=== PATIENT | male | born 1995 | race Caucasian/White ===

== ENCOUNTER 2017-06-28 23:07 | Emergency (ER) | payer OTHER ==
[2017-06-28] MEDS ORDERED: IBUPROFEN 200 MG TAB PO ONE (23:53)
[2017-06-28] MEDS ORDERED: IBUPROFEN 400 MG TAB ONE (23:53)
--- NOTE | 2017-06-29 00:24 | ER ---
Nurse's Notes [facility] Name: Devon Singer Age: 22 yrs Sex: Male : 1995 Arrival Date: 06/28/2017 Time: 23:15 Bed 6 Private MD: Diagnosis: Sprain of ankle;Sprain of other ligament of right ankle;Coagulation defect, unspecified Presentation: 06/28 23:24 Presenting complaint: Patient states: Was at work at [employer] and felt and ao hit his right ankle. Patient complains of pain at 7/10 pain scale. Patient negative for nausea and vomiting. No other injuries were reported. Transition of care: patient was not received from another setting of care. Onset of symptoms was June 28, 2017 at 22:30. Initial Sepsis Screen: Does the patient meet any 2 criteria? No. Patient's initial sepsis screen is negative. Does the patient have a suspected source of infection? No. Patient's initial sepsis screen is negative. Care prior to arrival: None. 23:24 Method Of Arrival: Ambulatory ao 23:24 Acuity: [place]RO[place] 4 ao Historical: - Allergies: 23:28 No Known Allergies; ao - Home Meds: 23:28 None [Active]; ao - PMHx: 23:28 Asthma; ao - PSHx: 23:28 toe nail; ao - Immunization history:: Adult Immunizations up to date. - Social history:: Smoking status: Patient/guardian denies using tobacco, Patient uses alcohol, occasionally. Patient/guardian denies using street drugs. - Family history:: not pertinent. Screenin/26 00:55 Abuse screen: Denies threats or abuse. Denies injuries from another. Nutritional ao screening: No deficits noted. Tuberculosis screening: No symptoms or risk factors identified. Fall Risk Fall in past 12 months (25 points). No secondary diagnosis (0 pts). No IV (0 pts). Ambulatory Aid- Crutches/Cane/Walker (15 pts). Gait- Normal/Bed Rest/Wheelchair (0 pts) Mental Status- Oriented to own ability (0 pts). Total Herrera Fall Scale indicates Low Risk Score (25-44 pts). Fall prevention measures have been instituted. Side Rails Up X 2 Frequent Obs/Assesments occuring As available Patient and Family Educated on Fall Prevention Program and strategies. Assessment: 00:00 General: Appears in no apparent distress. uncomfortable, Behavior is calm, cooperative, ao appropriate for age. Pain: Complains of pain in right ankle Pain currently is 7 out of 10 on a pain scale. Neuro: Level of Consciousness is awake, alert, obeys commands, Oriented to person, place, time, situation, Appropriate for age Moves all extremities. Speech is normal, Facial symmetry appears normal. Cardiovascular: Capillary refill < 3 seconds Patient's skin is warm and dry. Respiratory: Airway is patent Respiratory effort is even, unlabored, Respiratory pattern is regular, symmetrical. GI: Abdomen is obese. : No signs and/or symptoms were reported regarding the genitourinary system. EENT: No signs and/or symptoms were reported regarding the EENT system. Derm: Skin Petechiae noted in upper extremities. Musculoskeletal: Range of motion: intact in right ankle. Injury Description: Fall at work and injured his ankle. Vital Signs: 06/28 23:26 BP 147 / 96; Pulse 86; Resp 16; Temp 98.5(O); Pulse Ox 97% on R/A; Weight 102.06 kg ao (R); Height 5 ft. 11 in. (180.34 cm) (R); Pain 7/10; 06/29 00:45 BP 133 / 85; Pulse 80; Resp 14; Pulse Ox 99% on R/A; Pain 4/10; ao 06/28 23:26 Body Mass Index 31.38 (102.06 kg, 180.34 cm) ao ED Course: 06/28 23:15 Patient arrived in ED. es 23:24 Francisco Barbosa, RN is Primary Nurse. ao 23:26 Triage completed. ao 23:28 Arm band placed on right wrist. Patient placed in an exam room, Patient notified of ao wait time. 23:40 Medardo Silverman MD is Attending Physician. lawrence 23:56 X-ray completed. Portable x-ray completed in exam room. Patient tolerated procedure kw well. 23:57 Ankle Right 3 View XRAY In Process Unspecified. EDMS 06/29 00:23 Giuseppe Morgan MD is Referral Physician. lawrence 00:40 Kerri Pepe MD is Referral Physician. lawrence 00:56 Patient has correct armband on for positive identification. Pulse ox on. NIBP on. ao 00:56 No provider procedures requiring assistance completed. Patient did not have IV access ao during this emergency room visit. Administered Medications: 06/28 23:57 Drug: Motrin 600 mg Route: PO; ao 06/29 00:38 Follow up: Response: No adverse reaction ao Intake: 06/28 23:59 IV: 1000ml; Total: 1000ml. ao Outcome: 06/29 00:24 Discharge ordered by . lawrence 00:57 Discharged to home via wheelchair. ao 00:57 Condition: stable 00:57 Discharge instructions given to patient, Instructed on discharge instructions, follow up and referral plans. Demonstrated understanding of instructions, follow-up care, medications, Prescriptions given X 1. 01:06 Patient left the ED. ao Signatures: Dispatcher [employer] Medardo Farrell MD MD cha Salyer, Val Santamaria Alex, RN RN ao
--- NOTE | 2017-06-29 00:25 | EDPHYS ---
Physician Documentation [facility] Name: Devon Singer Age: 22 yrs Sex: Male : 1995 Arrival Date: 06/28/2017 Time: 23:15 Bed 6 Private MD: ED Physician Medardo Silverman HPI: 06/28 23:42 This 22 yrs old Male presents to ER via Ambulatory with complaints of Ankle lawrence Injury. 23:42 The patient presents with decreased range of motion, pain. The complaints affect the lawrence right ankle, right ankle. Onset: The symptoms/episode began/occurred just prior to arrival. Context: The problem was sustained at work, resulted from a mis-step by the patient, on a slippery surface. Associated signs and symptoms: The patient has no apparent associated signs or symptoms. Modifying factors: The symptoms are alleviated by elevation of extremity, ice packs, the symptoms are aggravated by weight bearing, movement. Severity of symptoms: At their worst the symptoms were moderate, in the emergency department the symptoms are unchanged. The patient has not experienced similar symptoms in the past. Historical: - Allergies: 23:28 No Known Allergies; ao - Home Meds: 23:28 None [Active]; ao - PMHx: 23:28 Asthma; ao - PSHx: 23:28 toe nail; ao - Immunization history:: Adult Immunizations up to date. - Social history:: Smoking status: Patient/guardian denies using tobacco, Patient uses alcohol, occasionally. Patient/guardian denies using street drugs. - Family history:: not pertinent. ROS: 23:42 Constitutional: Negative for fever, chills, and weight loss, Eyes: Negative for injury, lawrence pain, redness, and discharge, ENT: Negative for injury, pain, and discharge, Neck: Negative for injury, pain, and swelling, Cardiovascular: Negative for chest pain, palpitations, and edema, Respiratory: Negative for shortness of breath, cough, wheezing, and pleuritic chest pain, Abdomen/GI: Negative for abdominal pain, nausea, vomiting, diarrhea, and constipation, Back: Negative for injury and pain, : Negative for injury, bleeding, discharge, and swelling, Skin: Negative for injury, rash, and discoloration, Neuro: Negative for headache, weakness, numbness, tingling, and seizure, Psych: Negative for depression, anxiety, suicide ideation, homicidal ideation, and hallucinations, Allergy/Immunology: Negative for hives, rash, and allergies, Endocrine: Negative for neck swelling, polydipsia, polyuria, polyphagia, and marked weight changes, Hematologic/Lymphatic: Negative for swollen nodes, abnormal bleeding, and unusual bruising. 23:42 MS/extremity: Positive for decreased range of motion, pain, swelling, of the right ankle. Exam: 23:42 Constitutional: This is a well developed, well nourished patient who is awake, alert, lawrence and in no acute distress. Head/Face: Normocephalic, atraumatic. Eyes: Pupils equal round and reactive to light, extra-ocular motions intact. Lids and lashes normal. Conjunctiva and sclera are non-icteric and not injected. Cornea within normal limits. Periorbital areas with no swelling, redness, or edema. ENT: Nares patent. No nasal discharge, no septal abnormalities noted. Tympanic membranes are normal and external auditory canals are clear. Oropharynx with no redness, swelling, or masses, exudates, or evidence of obstruction, uvula midline. Mucous membranes moist. Neck: Trachea midline, no thyromegaly or masses palpated, and no cervical lymphadenopathy. Supple, full range of motion without nuchal rigidity, or vertebral point tenderness. No Meningismus. Chest/axilla: Normal chest wall appearance and motion. Nontender with no deformity. No lesions are appreciated. Cardiovascular: Regular rate and rhythm with a normal S1 and S2. No gallops, murmurs, or rubs. Normal PMI, no JVD. No pulse deficits. Respiratory: Lungs have equal breath sounds bilaterally, clear to auscultation and percussion. No rales, rhonchi or wheezes noted. No increased work of breathing, no retractions or nasal flaring. Abdomen/GI: Soft, non-tender, with normal bowel sounds. No distension or tympany. No guarding or rebound. No evidence of tenderness throughout. Back: No spinal tenderness. No costovertebral tenderness. Full range of motion. Male : Normal genitalia with no discharge or lesions. Skin: Warm, dry with normal turgor. Normal color with no rashes, no lesions, and no evidence of cellulitis. Neuro: Awake and alert, GCS 15, oriented to person, place, time, and situation. Cranial nerves II-XII grossly intact. Motor strength 5/5 in all extremities. Sensory grossly intact. Cerebellar exam normal. Normal gait. Psych: Awake, alert, with orientation to person, place and time. Behavior, mood, and affect are within normal limits. 23:42 Musculoskeletal/extremity: ROM: full passive range of motion, limited active range of motion, Circulation is intact in all extremities. Sensation intact. Compartment Syndrome exam of affected extremity: is normal. Joints: the right ankle displays effusion, limited range of motion, pain at rest, painful range of motion, swelling, DVT Exam: negative Homans' sign noted on exam, no appreciated bluish discoloration, no erythema, no increased warmth, pain, swelling, tenderness. Vital Signs: 23:26 BP 147 / 96; Pulse 86; Resp 16; Temp 98.5(O); Pulse Ox 97% on R/A; Weight 102.06 kg ao (R); Height 5 ft. 11 in. (180.34 cm) (R); Pain 7/10; 06/29 00:45 BP 133 / 85; Pulse 80; Resp 14; Pulse Ox 99% on R/A; Pain 4/10; ao 06/28 23:26 Body Mass Index 31.38 (102.06 kg, 180.34 cm) ao MDM: 06/28 23:40 Patient medically screened. [facility] 23:42 Data reviewed: vital signs, nurses notes, radiologic studies, plain films. [facility] 06/28 23:42 Order name: Ankle Right 3 View XRAY [facility] 06/28 23:42 Order name: Ice pack; Complete Time: 23:57 [facility] 06/28 23:42 Order name: Crutches; Complete Time: 00:38 [facility] 06/28 23:42 Order name: Posterior Orthoglass Ankle Splint; Complete Time: 00:51 [facility] Administered Medications: 23:57 Drug: Motrin 600 mg Route: PO; ao 06/29 00:38 Follow up: Response: No adverse reaction ao Disposition: 06/29/17 00:24 Discharged to Home. Impression: Sprain of ankle, Sprain of other ligament of right ankle, Coagulation defect, unspecified. - Condition is Stable. - Discharge Instructions: Ankle Sprain, Ankle Sprain, [id number], Ankle Pain. - Prescriptions for Tylenol- Codeine #3 300-30 mg Oral Tablet - take 2 tablets by ORAL route every 6 hours As needed; 26 tablet. - Medication Reconciliation Form, Thank You Letter, Antibiotic Education, Prescription Opioid Use, Work release form form. - Follow up: Private Physician; When: 2 - 3 days; Reason: Recheck today's complaints, Continuance of care, Re-evaluation by your physician. Follow up: Giuseppe Morgan; When: 2 - 3 days; Reason: Recheck today's complaints, Re-evaluation by your physician. Follow up: Kerri Pepe MD; When: 2 - 3 days; Reason: Recheck today's complaints, Continuance of care, Re-evaluation by your physician. - Problem is new. - Symptoms have improved. Signatures: Dispatcher [employer] Medardo Farrell MD MD cha Ortiz, Alex, RN RN ao
--- NOTE | 2017-06-29 08:44 | RAD REPORT ---
EXAM DESCRIPTION: RAD - Ankle Right 3 View - 06/29/2017 12:00 am CLINICAL HISTORY: Right ankle pain and swelling. COMPARISON: None. FINDINGS: Moderate ankle joint effusion is seen. Significant lateral soft tissue swelling is evident . No acute fracture or dislocation is seen.
== END 2017-06-29 01:06 | disposition home or self-care (01) ==
LOC: ER 23:07
PROC: 2W3QX1Z Immobilization of Right Lower Leg using Splint (ICD-10-PCS; principal; 2017-06-28)
DX: S93.491A Sprain of other ligament of right ankle, initial encounter (principal); W01.0XXA Fall on same level from slipping, tripping and stumbling without subsequent striking against object, initial encounter; Y93.9 Activity, unspecified; Y92.89 Other specified places as the place of occurrence of the external cause; D68.9 Coagulation defect, unspecified
CPT/HCPCS: 99284

== ENCOUNTER 2018-04-17 17:23 | Emergency (ER) | payer OTHER, SELFPAY ==
[2018-04-17] MEDS ORDERED: IPRATROPIUM BROM 0.5MG/2.5ML ONE (18:35)
[2018-04-17] MEDS ORDERED: ALBUTEROL 2.5 MG/3 ML NEB SOL ONE (18:35)
[2018-04-17] MEDS ORDERED: predniSONE 20 MG TAB ONE (18:35)
--- NOTE | 2018-04-17 18:53 | RAD REPORT ---
EXAM DESCRIPTION: RAD - Chest Pa And Lat (2 Views) - 04/17/2018 6:27 pm CLINICAL HISTORY: Cough and congestion COMPARISON: None. TECHNIQUE: PA and lateral views of the chest were obtained. FINDINGS: The lungs are clear. Heart size is normal and central vasculature is within normal limit s. No pleural effusion or pneumothorax seen. No acute bony finding noted. No aortic abnormality. IMPRESSION: No acute cardiopulmonary process.
--- NOTE | 2018-04-17 19:28 | ER ---
Nurse's Notes [facility] Name: Devon Singer Age: 22 yrs Sex: Male : 1995 Arrival Date: 04/17/2018 Time: 17:28 Bed 6 Private MD: Juanito Painting H Diagnosis: Acute bronchospasm;Acute bronchitis Presentation: 04/17 17:37 Presenting complaint: Productive cough with yellow sputum, pain with cough, and SOB x 2 hb days. Transition of care: patient was not received from another setting of care. Onset of symptoms was April 16, 2018. Risk Assessment: Do you want to hurt yourself or someone else? Patient reports no desire to harm self or others. Care prior to arrival: None. 17:37 Method Of Arrival: Ambulatory hb 17:37 Acuity: [place] 2 hb 18:30 Initial Sepsis Screen: Does the patient meet any 2 criteria? HR > 90 bpm. Does the aa5 patient have a suspected source of infection? No. Patient's initial sepsis screen is negative. Historical: - Allergies: 17:39 No Known Allergies; hb - PMHx: 17:39 Asthma; hb - PSHx: 17:39 toe nail; hb - Immunization history:: Adult Immunizations up to date. - Social history:: Smoking status: Patient/guardian denies using tobacco. - Ebola Screening: : No symptoms or risks identified at this time. Screenin:30 Abuse screen: Denies threats or abuse. Nutritional screening: No deficits noted. aa5 Tuberculosis screening: No symptoms or risk factors identified. Fall Risk None identified. Assessment: 18:28 General: Appears comfortable, Behavior is calm, cooperative. Pain: Complains of pain in aa5 mid-sternal area Pain currently is 5 out of 10 on a pain scale. Quality of pain is described as aching, pressure, Is intermittent, Aggravated by pain only with cough. Neuro: Level of Consciousness is awake, alert, obeys commands, Oriented to person, place, time, situation. Cardiovascular: Heart tones S1 S2 present Capillary refill < 3 seconds is brisk in bilateral fingers Rhythm is regular. Respiratory: Reports shortness of breath cough that is productive, Airway is patent Respiratory effort is even, unlabored, Respiratory pattern is regular, symmetrical, Breath sounds are clear bilaterally. GI: No signs and/or symptoms were reported involving the gastrointestinal system. : No signs and/or symptoms were reported regarding the genitourinary system. EENT: No signs and/or symptoms were reported regarding the EENT system. Derm: Skin is pink, warm \T\ dry. Musculoskeletal: Range of motion: intact in all extremities. 18:28 Reassessment: Pt back from radiology . aa5 19:20 General: Appears in no apparent distress. Behavior is calm, cooperative. Pain: Denies ea pain. Neuro: Level of Consciousness is awake, alert, obeys commands, Oriented to person, place, time, situation. Cardiovascular: Patient's skin is warm and dry. Respiratory: Airway is patent Respiratory effort is even, unlabored, Respiratory pattern is regular, symmetrical. GI: No signs and/or symptoms were reported involving the gastrointestinal system. : No signs and/or symptoms were reported regarding the genitourinary system. Derm: Skin is pink, warm \T\ dry. Musculoskeletal: Range of motion: intact in all extremities. Vital Signs: 17:36 BP 133 / 100; Pulse 118; Resp 20; Temp 97.7; Pulse Ox 92% on R/A; Pain 6/10; hb 18:25 BP 137 / 92; Pulse 103; Resp 20 S; Pulse Ox 96% on R/A; aa5 19:19 BP 143 / 100; Pulse 110; Resp 20; Pulse Ox 96% on R/A; tl2 ED Course: 17:28 Patient arrived in ED. sb2 17:28 Juanito Painting DO is Private Physician. sb2 17:38 Triage completed. hb 17:39 Arm band placed on. hb 17:40 Sky Israel MD is Attending Physician. gs 18:26 XRAY Chest Pa And Lat (2 Views) In Process Unspecified. EDMS 18:30 Sera Rushing, JOSH is Primary Nurse. aa5 18:30 Patient has correct armband on for positive identification. aa5 19:00 Report given to JOSH Stover and JOSH Puckett. aa5 19:30 No provider procedures requiring assistance completed. IV discontinued, intact, ea bleeding controlled, No redness/swelling at site. Pressure dressing applied. Administered Medications: 18:28 Drug: AtroVENT Aerosol 0.5 mg Route: Inhalation; aa5 18:28 Drug: Albuterol 2.5 mg Route: Inhalation; aa5 18:28 Drug: predniSONE 40 mg Route: PO; aa5 Outcome: 19:28 Discharge ordered by . negrito 19:35 Discharged to home ambulatory, with significant other. carlos 19:35 Condition: improved 19:35 Discharge instructions given to patient, Instructed on discharge instructions, follow up and referral plans. medication usage, Demonstrated understanding of instructions, follow-up care, medications. 19:48 Patient left the ED. ea Signatures: Dispatcher [employer] EDMS Sera Rushing RN RN aa5 Xena Duron RN RN Lavern Montana RN RN tl2 Jolanta Jarvis RN RN Sky Pate MD MD gs Billeau, Sheri sb2 Corrections: (The following items were deleted from the chart) 17:38 17:36 BP 133 / 100; Pulse 112bpm; Resp 20bpm; Pulse Ox 92% RA; Temp 97.7F; Pain 6/10; hbhb
--- NOTE | 2018-04-17 19:29 | EDPHYS ---
Physician Documentation [facility] Name: Devon Singer Age: 22 yrs Sex: Male : 1995 Arrival Date: 04/17/2018 Time: 17:28 Bed 6 Private MD: Juanito Painting H ED Physician Sky Israel HPI: 04/17 19:19 This 22 yrs old Male presents to ER via Ambulatory with complaints of gs Congestion. 19:19 The patient or guardian reports cough, described as moderate, difficulty breathing, flu gs symptoms, arthralgias, low-grade fever, myalgias. Onset: The symptoms/episode began/occurred 2 day(s) ago. Severity of symptoms: At their worst the symptoms were severe, in the emergency department the symptoms are unchanged. Modifying factors: The symptoms are alleviated by nothing, the symptoms are aggravated by nothing. Associated signs and symptoms: Pertinent positives: fever. The patient has experienced similar episodes in the past, a few times. Historical: - Allergies: 17:39 No Known Allergies; hb - PMHx: 17:39 Asthma; hb - PSHx: 17:39 toe nail; hb - Immunization history:: Adult Immunizations up to date. - Social history:: Smoking status: Patient/guardian denies using tobacco. - Ebola Screening: : No symptoms or risks identified at this time. ROS: 19:19 All other systems are negative. gs Exam: 19:19 Head/Face: Normocephalic, atraumatic. Eyes: Pupils equal round and reactive to light, gs extra-ocular motions intact. Lids and lashes normal. Conjunctiva and sclera are non-icteric and not injected. Cornea within normal limits. Periorbital areas with no swelling, redness, or edema. ENT: Nares patent. No nasal discharge, no septal abnormalities noted. Tympanic membranes are normal and external auditory canals are clear. Oropharynx with no redness, swelling, or masses, exudates, or evidence of obstruction, uvula midline. Mucous membranes moist. Neck: Trachea midline, no thyromegaly or masses palpated, and no cervical lymphadenopathy. Supple, full range of motion without nuchal rigidity, or vertebral point tenderness. No Meningismus. Chest/axilla: Normal chest wall appearance and motion. Nontender with no deformity. No lesions are appreciated. Abdomen/GI: Soft, non-tender, with normal bowel sounds. No distension or tympany. No guarding or rebound. No evidence of tenderness throughout. Back: No spinal tenderness. No costovertebral tenderness. Full range of motion. Skin: Warm, dry with normal turgor. Normal color with no rashes, no lesions, and no evidence of cellulitis. MS/ Extremity: Pulses equal, no cyanosis. Neurovascular intact. Full, normal range of motion. Neuro: Awake and alert, GCS 15, oriented to person, place, time, and situation. Cranial nerves II-XII grossly intact. Motor strength 5/5 in all extremities. Sensory grossly intact. Cerebellar exam normal. Normal gait. 19:19 Constitutional: The patient appears alert, awake. 19:19 Cardiovascular: Rate: tachycardic, Rhythm: regular, Pulses: no pulse deficits are appreciated, Heart sounds: normal. 19:19 Respiratory: Exam negative for intercostal retractions, mild respiratory distress is noted, Respirations: tachypnea, that is mild, Breath sounds: decreased breath sounds, that are moderate, are located in both bases, rhonchi, that are moderate, are scattered. Vital Signs: 17:36 BP 133 / 100; Pulse 118; Resp 20; Temp 97.7; Pulse Ox 92% on R/A; Pain 6/10; hb 18:25 BP 137 / 92; Pulse 103; Resp 20 S; Pulse Ox 96% on R/A; aa5 19:19 BP 143 / 100; Pulse 110; Resp 20; Pulse Ox 96% on R/A; tl2 MDM: 18:14 Patient medically screened. 19:19 Differential Diagnosis: Bronchitis Influenza Upper Respiratory Infection. Data reviewed: vital signs, nurses notes. Response to treatment: the patient's symptoms have markedly improved after treatment, the patient's condition has returned to base line. 19:19 Counseling: I had a detailed discussion with the patient and/or guardian regarding: the historical points, exam findings, and any diagnostic results supporting the discharge/admit diagnosis, the presence of at least one elevated blood pressure reading (>120/80) during this emergency department visit, radiology results, the need for outpatient follow up. Special discussion: I have referred the patient to see his PCP for further evaluation of high blood pressure. 04/17 18:14 Order name: D-Dimer; Complete Time: 19:13 04/17 18:14 Order name: XRAY Chest Pa And Lat (2 Views); Complete Time: 19:13 Administered Medications: 18:28 Drug: AtroVENT Aerosol 0.5 mg Route: Inhalation; aa5 18:28 Drug: Albuterol 2.5 mg Route: Inhalation; aa5 18:28 Drug: predniSONE 40 mg Route: PO; aa5 Disposition: 04/17/18 19:28 Discharged to Home. Impression: Acute bronchospasm, Acute bronchitis. - Condition is Stable. - Discharge Instructions: Acute Bronchitis, Adult, Managing Your Hypertension. - Prescriptions for Prednisone 20 mg Oral Tablet - take 2 tablet by ORAL route once daily for 5 days; 10 tablet. Albuterol Sulfate 90 mcg/actuation - inhale 1-2 puff by INHALATION route every 4-6 hours; 1 Inhaler. - Medication Reconciliation Form, Thank You Letter, Antibiotic Education, Prescription Opioid Use form. - Work release form (04/18/18 08:56). em1 - Follow up: Private Physician; When: 2 - 3 days; Reason: Re-evaluation by your physician. Signatures: Dispatcher [employer] EDMS Sera Rushing RN RN aa5 Xena Duron RN RN Jolanta Jarvis RN RN ea Starr, Gregory, MD MD gs Martinez, Eric em1 Corrections: (The following items were deleted from the chart) 19:48 19:28 04/17/2018 19:28 Discharged to Home. Impression: Acute bronchospasm; Acute ea bronchitis. Condition is Stable. Forms are Medication Reconciliation Form, Thank You Letter, Antibiotic Education, Prescription Opioid Use. Follow up: Private Physician; When: 2 - 3 days; Reason: Re-evaluation by your physician. gs
== END 2018-04-17 19:48 | disposition home or self-care (01) ==
LOC: ER 17:23
DX: J20.9 Acute bronchitis, unspecified (principal); J45.909 Unspecified asthma, uncomplicated
CPT/HCPCS: 36415; 71046; 85379; 99284; J7512